=== PATIENT | male | born 1955 | race Caucasian/White ===

== ENCOUNTER 2023-04-01 17:33 | Emergency (ER) | payer MEDICARE, OTHER ==
[~2023-04-01] VITALS: Ht 165.1 cm; Wt 71.2 kg
[2023-04-01] MEDS ORDERED: bp med PO (17:46)
[2023-04-01 18:05] LABS: BASOPHILS % (AUTO) 0.9 % (0.0-2.0); EOSINOPHILS # (AUTO) 0.2 K/uL (0.0-0.7); EOSINOPHILS % (AUTO) 3.9 % (0.0-7.0); HEMATOCRIT 40.4 % (36.7-47.1); LYMPHOCYTES # (AUTO) 1.1 K/uL (0.8-4.8); LYMPHOCYTES % (AUTO) 26.4 % (20.5-51.5); MEAN CORPUSCULAR HEMOGLOBIN 31.3 uug (23.8-33.4); MEAN CORPUSCULAR HGB CONC 35 g/dL (32.5-36.3); MEAN CORPUSCULAR VOLUME 90.5 fL (73.0-96.2); MONOCYTES # (AUTO) 0.3 K/uL (0.1-1.30); MONOCYTES % (AUTO) 7.3 % (0.0-11.0); NEUTROPHILS # (AUTO) 2.6 K/uL (1.8-8.9); NEUTROPHILS % (AUTO) 61.5 % (38.5-71.5); PLATELET COUNT (AUTO) 156 K/uL (152-348); RED BLOOD CELL COUNT(AUTO) 4.46 MIL/uL (4.06-5.63); RED CELL DISTRIBUTION WIDTH 13.4 % (12.1-16.2); WHITE BLOOD COUNT (AUTO) 4.3 K/uL (3.6-10.2)
[2023-04-01 18:07] LABS: DIFFERENTIAL COMMENT 1
[2023-04-01 18:20] LABS: CALCIUM 9.1 mg/dL (8.5-10.1); CARBON DIOXIDE 22 mmol/L (21-32); CHLORIDE 104 mmol/L (98-107); CREATININE 0.8 mg/dL (0.6-1.3); GLUCOSE 124 mg/dL (74-106); POTASSIUM 3.7 mmol/L (3.5-5.1); SODIUM SERUM 138 mmol/L (136-145); UREA NITROGEN, BLOOD 18 mg/dL (7-18)
[2023-04-01 18:24] LABS: ALANINE AMINOTRANSFERASE 24 U/L (16-63); ALBUMIN 3.9 g/dL (3.4-5.0); ALKALINE PHOSPHATASE 88 U/L (50-136); ASPARTATE AMINOTRANSFERASE 11 U/L (15-37); BILIRUBIN,DIRECT 0.2 mg/dL (0.0-0.2); BILIRUBIN,TOTAL 0.8 mg/dL (0.2-1.0); LIPASE 35 U/L (16-77)
[2023-04-01] MEDS ORDERED: SWABABLE VALVE TRANSFER SET EA MC ONE (18:42)
[2023-04-01] MEDS ORDERED: IV NORMAL SALINE 250 ML IV ONE (18:42)
[2023-04-01] MEDS ORDERED: IOHEXOL 300MG/ML 100 ML INFUS..BTL ONE (18:42)
[2023-04-01] MEDS ORDERED: KETOROLAC TROMETHAMINE 15 MG INJ IVP ONE (20:00)
[2023-04-01] MEDS ORDERED: KETOROLAC TROMETHAMINE 15 MG INJ ONE (20:32)
[2023-04-01] MEDS ORDERED: NAPR-1164 PO (21:10)
[2023-04-01 21:29] VITALS: BP 137/83; TEMP 98; O2SAT 97
== END 2023-04-01 21:20 | disposition home or self-care (01) ==
LOC: ER 17:38
DX: M54.2 Cervicalgia (principal); R07.89 Other chest pain; R51.9 Headache, unspecified; V43.52XA Car driver injured in collision with other type car in traffic accident, initial encounter; Y93.89 Activity, other specified; Y92.89 Other specified places as the place of occurrence of the external cause; Y99.8 Other external cause status
CPT/HCPCS: 99285; 70450; 96374; 80076; 80048; 83690; 85025; 85730; 84484; 36415; 93005; 71260; 72125; 74177; J1885; Q9967; A4606; A4663